=== PATIENT | male | born 1955 | race Caucasian/White ===

== ENCOUNTER 2023-10-23 22:45 | Inpatient (IN) | payer MEDICARE, SELFPAY ==
[2023-10-23 19:34] VITALS: BP 155/96
--- NOTE | 2023-10-23 19:59 | ED.GENMED ---
History of Present Illness
General
Chief Complaint: Change in Mental Status
Source: spouse
Exam Limitations: altered mental status
Time Seen by Provider: 10/23/23 19:48
Travel History
Have you had any contact with someone who has COVID-19?: Unable to Answer
Do you have any symptoms of coronavirus? Fever > 100 degrees, chills, cough, shortness of breath, sore throat, loss of taste or smell, muscle aches, or headache?: Unable to Answer
History of Present Illness
History of Present Illness:
This is a 68 year old male that comes in by ambulance with change in mental status. state that on he was fine. States that they watched basketball together. Then Wednesday he told her that he did not fell good and stayed in bed al day.
States that he said that he was tired. Today he told her this morning and that still did not fell well and she went about her daily activities. States that she didn't know if he came down to eat. State that she went up at dinner to see what he
wanted to eat and he was unable to talk. States that he was incoherent. States that there was urine everywhere. States that she noticed that he had not taken his Thyroid medication for 2 days so she gave him his medication and waited 30 min and
there was no change. Denies any fever, chest pain, SOB, abd pain, nausea, vomiting, diarrhea, headache.
Past History
Past History
ED Past Medical History: HTN, Hypothyroidism and Other (OA)
ED Past Surgical History: Orthopedic (Bilateral hip replacements. Left knee surgery, ) and Other (Hernia, Thyroidectomy)
Social History
Tobacco: Non-smoker
Alcohol: Daily
Personal:
Living: with family
Employment: Employed
Review of Systems
Review of Systems
Other source history: family
All Other Systems: ROS reviewed and negative except as documented in HPI and ROS
Constitutional: Reports fatigue; Denies fever or chills
EENT: Reports no symptoms
Respiratory: Denies cough or trouble breathing
Cardiac: Denies no symptoms or chest pain
ABD/GI: Reports no symptoms; Denies abdominal pain, nausea, vomiting or diarrhea
: Reports incontinence
Musculoskeletal: Reports no symptoms
Skin: Reports no symptoms
Neurological: Reports other (Change in mental status); Denies headache
Psychiatric: Reports no symptoms
Phy Exam
General Physical Exam
General Presentation: no apparent distress
General age: appears stated age
General Skin: warm and dry
General Habitus: elderly and poor hygiene
General Mental: confused (Patient able to give history and his PCP, Lethargic goes right back to sleep)
General Hydration: dry mucous membranes
ENT Exam
ENT Exam: TM's normal, pharynx normal and neck supple
Eye Exam
Eye Exam: EOMI
Cardiovascular Exam
Cardiovascular Exam: regular rate/rhythm, no edema and normal peripheral pulses
Pulmonary Exam
Pulmonary Exam: lungs clear, no respiratory distress, no rales, chest non tender, no crackles, no rhonchi, no wheezing and no cough
Gastrointestinal Exam
Gastrointestinal Exam: normal bowel sounds, non tender, soft, no organomegaly, no pulsatile mass and non distended
Musculoskeletal Exam
Musculoskeletal Exam: full ROM and no edema
Skin Exam
Skin Exam: normal color, warm/dry, no rash and no petechia
Psychiatric Exam
Psychiatric Exam: other (altered mental status)
Course
Orders/Labs/Results
Orders:
Orders
10/23/23 19:42
Alcohol Urgent
COVID-19 Antigen Urgent
Source: Nasal Swab
Complete Blood Count/With Diff Urgent
Comprehensive Metabolic Panel Urgent
TSH Reflex To Free T4 Urgent
Comment: ADD ON
Influenza A+B Rapid Molecular Urgent
RAMOS Source: Nasal Swab
Specimen Description:
10/23/23 19:57
CT Head W/o Iv Contrast Urgent
Comment:
Reason For Exam: CHANGE IN MENTAL STATUS
0.9% Sodium Chloride 1000 ml [Nss] 1,000 ml IV BOLUS
10/23/23 20:14
Add On- LAB Urgent
Tests Added?: TSH with reflex free T4
10/23/23 20:22
Electrocardiogram (*1) Urgent
Reason for Study: Other
Other Reason for Exam: change in mental status
EKG- Treatment ONCE
10/23/23 20:26
Blood Culture Q30M
RAMOS Source: Blood/Venous
Specimen Description:
10/23/23 20:39
Ammonia Urgent
Lactic Acid Urgent
10/23/23 20:40
Blood Culture Q30M
RAMOS Source: Blood/Venous
Specimen Description:
10/23/23 21:30
Straight cath- Treatment ONCE
10/23/23 21:32
CR Chest - 2 Views Urgent
Comment:
Reason For Exam: Cough
10/23/23 21:44
Urinalysis Reflex To Culture Urgent
Date Specimen was Collected: 10/23/23
Time Specimen was Collected: 21:31
Urine Drug Abuse Screen Urgent
Date Specimen was Collected: 10/23/23
Time Specimen was Collected: 21:31
Urine Microscopic Reflex Cult Urgent
10/23/23 22:31
Admit/Transfer Patient As Directed
Co-Sign Provider:
Level of Care: Inpatient admission
Assign to:: Telemetry
Physician / Group: Hospitalist
Diagnosis: Change of mental status
Reason for Telemetry: Arrhythmia
Date to Stop Telemetry: 10/26/23
Time to Stop Telemetry: 11:00
Reason for Hospitalization: Change of mental status
Expected length of stay greater than two midnights?: Yes
ELOS- Estimated Length of Stay in days: 3
I certify the patient meets the requirements for IP care: Yes
10/23/23 22:33
Code Status As Directed
Resuscitation Status: Full Code
10/26/23 11:00
DC Protocol for Telemetry ONCE
Abnormal Lab Results
10/23/23 10/23/23 10/23/23
19:42 20:39 21:44
RDW 16.6 H %
(11.5-14.5)
Abs Immat Gran (auto) 0.1 H 10^3/uL
(0-0.05)
Absolute Neuts (auto) 6.8 H 10^3/uL
(1.4-6.5)
Absolute Lymphs (auto) 0.8 L 10^3/uL
(1.2-3.4)
Immature Gran % 0.6 H %
(0-0.5)
Neutrophils % 82.3 H %
(42.2-75.2)
Lymphocytes % 9.2 L %
(20.5-51.1)
Potassium 3.4 L mmol/L
(3.5-5.1)
BUN 31 H mg/dl
(9-20)
Glucose 228 H mg/dl
(70-99)
AST 107 H U/L
(17-59)
ALT 126 H U/L
(0-50)
Ammonia < 9 L umol/L
(9-30)
Urine Ketones 3+ A
(Negative)
Ur Occult Blood Reflex 1+ A
(Negative)
Urine Bilirubin 1+ A
(Negative)
Urine Bacteria (Reflex) Few A
(Negative)
Urine Glucose Trace A
(Negative)
Urine Albumin (Reflex) 1+ A
(Neg - Trace)
10/23/23 19:42
10/23/23 19:42
Dehydration. Glucose nonfasting. AST/ALT eledvation. Ammonia <9 normal. Lactic acid normal at 1.5, TSH 0.74, Negative alcohol. COVID negative. Urine negative for infection. Urine drug negative.
Vital Signs
Initial and Last Documented VS:
Initial Vital Signs
Temp Pulse Resp BP Pulse Ox
97.8 F 128 34 155/96 89
10/23/23 19:34 10/23/23 19:34 10/23/23 19:34 10/23/23 19:34 10/23/23 19:34
Last Documented Vital Signs
Temp Pulse Resp BP Pulse Ox
97.8 F 114 24 112/64 93
10/23/23 19:34 10/23/23 22:45 10/23/23 22:45 10/23/23 22:00 10/23/23 22:45
MDM/Problems Addressed
Differential Diagnosis Includes:
CVA, Alcohol intoxication, Hypothyroid, COVID
MDM/Problems Addressed:
This is a 68 year old male that is brought in by ambulance with c/o altered mental status. states that he told her that he did not feel well on and was tired. Patient stayed in bed. Then on Wednesday he was still not feeling well and
stayed in bed. Today he was in bed and she went to check on him at Dinner time and he was incont and unable to speak
Will get labs, CT head, IV fluids, Urine, Urine drug
back into see patient and his . Reviewed all findings. Explained that his CT of the head was normal. Asked patient to try and urinate in the urinal and he said that he would be unable as he did not have to urinate. Will straight cath and get
chest x-ray. Explained to he will be admitted. Hospitalist notified.
Chronic conditions affecting care: Other (Hypothyroid)
Acute Exacerbation and/or Progression of Chronic Illness:
NA
*Radiology
Radiology exam reviewed: preliminary read by ED provider (Chest- Negative for active disease. ) and radiology read reviewed (CT head night hawk- No acute intracranial process. No intracranial bleed. No calvarial fracture. Unchange mild parenchymal
volume loss)
*Pulse Oximetry
Patient hypoxic: no
*EKG
Interpreted by ED Provider?: Yes
Heart Rate: 113
Rate: tachycardiac
Rhythm: sinus
[place]: normal axis
Interval: normal interval
QRS Pattern: right bundle branch block
Ischemia: no ischemia
*Operations Liaison Interpretation
Rate: tachycardiac
Heart Rate: 122
Rhythm: sinus tachycardia
*Critical Care Note
Total Time (30-74mins, 75-104mins- exclusive of procedures): Not Applicable
ED Attending Note
-
Portions of this chart may have been created with voice recognition software.� Occasional wrong word or��sound alike� substitutions may have occurred due to the inherent limitations of voice recognition software.
Discharge Plan
Departure
Patient Disposition: Admit
Date of Disposition: 10/23/23
Time of Disposition: 21:34
Admit to: Telemetry
Presentation/result/management discussed w/ accepting MD/DO: Hospitalist
Patient with high blood pressure during this ER visit?: No
Condition: Good
Covid-19: Negative COVID-19
Discharge Problem:
Acute alteration in mental status
Interventions
Interventions:
*Risk Screen - Suicide Last Done: 10/23/23 19:34
*General Assessment Last Done: 10/23/23 19:34
*Neglect/Abuse Screening Last Done: 10/23/23 19:34
ED- Fall Risk Assessment Last Done: 10/23/23 19:50
*ED COVID-19 Vaccine History Last Done: 10/23/23 19:34
ED- Pulmonary Assessment Last Done: 10/23/23 19:50
ED- Neurological Assessment Last Done: 10/23/23 19:50
ED- Cardiac Assessment Last Done: 10/23/23 19:50
--- NOTE | 2023-10-23 19:59 | EDRN ---
Pt incontinent of urine upon arrival - wet clothes removed and bagged. Diaper placed. Pt moves all extremities and repositions himself. Pt follows commands sometimes, has to be asked multiple times to follow commands. Pt drowsy, falls asleep
quickly when undisturbed.
[2023-10-23 20:00] VITALS: BP 122/68
[2023-10-23] MEDS: NSS 1000 IV (20:03)
[2023-10-23 20:10] LABS: % Basophils 0.2 % (0-2); % Immature Granulocytes 0.6 % (0-0.5); % Lymphocytes 9.2 % (20.5-51.1); % Monocytes 7.7 % (1.7-9.3); % Neutrophils 82.3 % (42.2-75.2); Absolute Immature Granulocytes 0.1 10^3/uL (0-0.05); Absolute Lymphocytes 0.8 10^3/uL (1.2-3.4); Absolute Monocytes 0.6 10^3/uL (0.1-0.6); Absolute Neutrophils 6.8 10^3/uL (1.4-6.5); Mean Corp Hgb Conc. 34.9 g/dL (33.0-37.0); Mean Corpuscular Hgb 29.8 pg (27.0-31.0); Mean Corpuscular Volume 85.5 fL (80.0-94.0); Mean Platelet Volume 10.2 fL (7.4-10.4); Nucleated Red Blood Cells % 0 % (-); Platelet Count 202 10^3/uL (130-400); Red Blood Cell Count 5.03 10^6/uL (4.70-6.10); Red Cell Dist. Width 16.6 % (11.5-14.5); White Blood Cell Count 8.3 10^3/uL (4.8-10.8)
[2023-10-23 20:20] LABS: COVID-19 Antigen Negative (Negative)
[2023-10-23 20:24] LABS: ALT (SGPT) 126 U/L (0-50); AST (SGOT) 107 U/L (17-59); Albumin 4.7 g/dl (3.5-5.0); Alkaline Phosphatase 88 U/L (38-126); Blood Urea Nitrogen 31 mg/dl (9-20); Calcium 9.7 mg/dl (8.4-10.2); Carbon Dioxide 28 mmol/L (22-30); Chloride 101 mmol/L (98-107); Glucose 228 mg/dl (70-99); Potassium 3.4 mmol/L (3.5-5.1); Sodium 141 mmol/L (135-145); Total Bilirubin 0.8 mg/dl (0.2-1.3); Total Protein 7.5 g/dl (6.3-8.2); eGFR > 60.00
[2023-10-23 20:25] LABS: Alcohol None Detected
[2023-10-23 20:47] VITALS: BP 107/62
[2023-10-23 21:02] LABS: TSH Reflex To Free T4 0.74 uIU/ml (0.47-4.68)
[2023-10-23 21:04] LABS: Ammonia < 9 umol/L (9-30); Lactic Acid 1.5 mmol/L (0.7-2.0)
[2023-10-23 21:55] LABS: Urine Albumin 1+ (Neg - Trace); Urine Bilirubin 1+ (Negative); Urine Character Clear (Clear); Urine Color Yellow; Urine Glucose Trace (Negative); Urine Ketone 3+ (Negative); Urine Leukocyte Negative (Negative); Urine Nitrite Negative (Negative); Urine Occult Blood 1+ (Negative); Urine Urobilinogen 1+ (Neg - 1+); Urine pH 6.5 (5.0-9.0)
[2023-10-23 22:00] VITALS: BP 112/64
[2023-10-23 22:04] LABS: Urine Bacteria Few (Negative); Urine Red Blood Cell 0-2 /HPF (0-2); Urine White Cell 0-2 /HPF (0-5)
--- NOTE | 2023-10-23 22:17 | HPS.HSE ---
Family Physician
-
Family Physician: Ck Iverson
Chief Complaint
-
Change of mental status
History of Present Illness
68 year old man that comes in with change in mental status. state that 2 days ago he was fine. Then yesterday he told her that he did not fell good and stayed in bed al day, and remained in bed today. Tonight at dinner time he was unable to
talk, and that he was incoherent. Also, that there was urine everywhere. He Denies any fever, chest pain, SOB, abd pain, nausea, vomiting, diarrhea, headache. At the time of my interview he complained of thirst, but was otherwise non-focal, though
still confused and not able to answer most questions.
Medical History
Past Medical History
Past Medical History: Reports Other
Additional Past Medical History:
essential HTN,
Hypothyroidism
OA
Bilateral hip replacements.
Left knee surgery
Hernia,
Thyroidectomy
Past Surgical History: Reports Other
Additional Past Surgical History:
See above
Social History
Tobacco: Non-smoker
Alcohol: Daily
Drug: None
Personal:
Living: With Family
Family History
Family History: Not pertinent
Allergies / Home Medications
Allergies reflects when Allergies were last updated in [employer].
Home Medications with original date entered in [employer]
Allergy/Medication List:
Allergies
Allergy/AdvReac Type Severity Reaction Status Date / Time
Cephalosporins Allergy Rash Verified 10/23/23 20:06
penicillin V Allergy Rash Verified 10/23/23 20:06
Penicillins Allergy Rash Verified 10/23/23 20:06
Home Medications
Go Lo 1 tab PO MEALS 10/23/23
Super Beta Prostate Advanced 1 tab PO DAILY 10/23/23
amlodipine 10 mg tablet 10 mg PO DAILY 10/23/23
levothyroxine 125 mcg tablet 125 mcg PO SUTH 10/23/23
levothyroxine 125 mcg tablet 250 mcg PO MOTUWEFRSA 10/23/23
losartan 100 mg-hydrochlorothiazide 25 mg tablet 1 tab PO DAILY 10/23/23
omeprazole 20 mg capsule,delayed release 20 mg PO DAILY 10/23/23
Review of Systems
-
Unable to obtain full review of systems at this time due to: Acuity
Physical Exam
Vital Signs
Vital Signs
Temp Pulse Resp BP Pulse Ox
97.8 F 110 32 107/62 96
10/23/23 19:34 10/23/23 20:47 10/23/23 20:47 10/23/23 20:47 10/23/23 20:47
Physical Exam
General: Well Developed, Well Nourished, No Apparent Distress and Comfortable
HEENT: Nose Appears Normal and Ears Appear Normal
Respiratory: Clear
Cardiac: S1/S2, Irregular Rhythm and Tachycardia
GI: Soft, Non Tender and Non Distended
Musculoskeletal: No Clubbing, No Cyanosis and No Edema
Skin: Warm and Dry; No Rash
Psych: Confused
Laboratory Results
-
10/23/23 19:42
10/23/23 19:42
Laboratory Results
Lactic Acid 1.5 mmol/L (0.7-2.0) 10/23/23 20:39
Total Bilirubin 0.8 mg/dl (0.2-1.3) 10/23/23 19:42
AST 107 U/L (17-59) H 10/23/23 19:42
ALT 126 U/L (0-50) H 10/23/23 19:42
Alkaline Phosphatase 88 U/L (38-126) 10/23/23 19:42
Data Reviewed
-
Lab Data: Labs Reviewed by me
Impression/Plan
-
IMPRESSION:
68 man with change of mental status
PLAN:
1. Change of mental status, could be dehydration leading to metabolic encephalopathy.
Awaiting results of
Chest xray
UDS
UA
Re-eval when results available
In meantime, supportive care and IV fluids
2. BUN/Creat 31/0.9, likely dehydration from decreased PO intake
IV fluids
Re-eval in am
3. Heart rate of 110 - likely from dehydration, but has new RBBB
IV fluids
Tele
SUZAN
4. AST/ALT of 107/126, daily drinker
Follow levels daily
5. Low K, 3.4, likely decreased po intake
Replete with PO
Recheck in am
Full code
VCD for DVTp
[2023-10-23 22:41] LABS: Amphetamines Negative (Negative); Barbiturates Negative (Negative); Benzodiazepines Negative (Negative); Buprenorphine Negative (Negative); Cocaine Negative (Negative); Marijuana Negative (Negative); Methadone Negative (Negative); Methamphetamines Negative (Negative); Opiates Negative (Negative); Phencyclidine Negative (Negative); Tricyclic Antidepressants Negative (Negative)
[2023-10-23 23:17] VITALS: BP 110/68
[2023-10-24 00:30] VITALS: BP 127/68; BMI 34.2
--- NOTE | 2023-10-24 01:02 | PTCARENOTE ---
Pt. admitted from E.D., awake, alert, forgetful to time, ST on monitor, vs stable, call au within reach, bed alarm intact.
[2023-10-24] MEDS: FLUSH (NSS) 1 FLUSH IV (01:16)
[2023-10-24] MEDS: NSS 1000 IV ×2 (01:16→06:32)
[2023-10-24 02:45] LABS: Troponin I < 0.012 ng/ml
[2023-10-24] MEDS: SYNTHROID 125 MCG PO (06:47)
[2023-10-24 08:47] LABS: Hematocrit 39.2 % (39.0-52.0); Hemoglobin 13.3 g/dL (13.0-18.0); Mean Corp Hgb Conc. 33.9 g/dL (33.0-37.0); Mean Corpuscular Hgb 29.8 pg (27.0-31.0); Mean Corpuscular Volume 87.9 fL (80.0-94.0); Platelet Count 161 10^3/uL (130-400); Red Blood Cell Count 4.46 10^6/uL (4.70-6.10); Red Cell Dist. Width 16.4 % (11.5-14.5); White Blood Cell Count 6.5 10^3/uL (4.8-10.8)
[2023-10-24] MEDS: KLOR-CON 20 MEQ PO (09:06)
[2023-10-24] MEDS: HYZAAR 100-25 TABLET 1 TAB PO (09:06)
[2023-10-24] MEDS: NORVASC 10 MG PO (09:06)
[2023-10-24] MEDS: PROTONIX 40 MG PO (09:06)
[2023-10-24 09:10] LABS: Troponin I 0.015 ng/ml
[2023-10-24 09:12] LABS: ALT (SGPT) 113 U/L (0-50); AST (SGOT) 95 U/L (17-59); Albumin 4.1 g/dl (3.5-5.0); Alkaline Phosphatase 74 U/L (38-126); Blood Urea Nitrogen 24 mg/dl (9-20); Calcium 9.3 mg/dl (8.4-10.2); Carbon Dioxide 31 mmol/L (22-30); Chloride 102 mmol/L (98-107); Estimated Creatinine Clearance 99 ml/min; Glucose 159 mg/dl (70-99); Potassium 2.9 mmol/L (3.5-5.1); Sodium 142 mmol/L (135-145); Total Bilirubin 0.8 mg/dl (0.2-1.3); Total Cholesterol 237 mg/dl (50-199); Total Protein 6.7 g/dl (6.3-8.2); Triglyceride 60 mg/dl (10-149); Very Low Density Lipoprotein 12 mg/dl (0-30); eGFR > 60.00
[2023-10-24 09:21] LABS: HDL Cholesterol 151 mg/dl; LDL Cholesterol, Calculated 74 mg/dl
--- NOTE | 2023-10-24 10:00 | W.PN.HOSP.TC ---
Addendum entered and electronically signed by Anne Sena MD 10/24/23 12:00:
reports patient drinks daily, with 4 days a week drinking 6 or more. Reports that patient also hides drinking.
MSAS protocol added
Original Note:
Today's Communication/Plan
-
see outlined plan
d/w
Assessment / Plan
Assessment / Plan
Assessment:
Change in mental status
- patient reports daily Vodka intake, and does not recall quantity ( cannot corroborate an amount)
- head CT negative; repeat CT this evening to eval for occult CVA. cannot have MRI due to metal in knee/shoulder
- TSH normal
- Ammonia level normal
- check B12/Folate
- UA clear. Follow Bcx
Acute hypoxic respiratory insufficiency
- CXR with atelectasis
- IS
Elevated LFTs
- might reflect fatty liver from ETOH use
- check Abd US
- check hep panel
- trend levels
Essential HTN
- continue CCB/Losartan
- hold HCTZ with low K+
Hypothyroidism
- continue LT4
- TSH is normal
GERD - PPI
Hypokalemia
- replete IV and oral this morning
- repeat level in AM
DVT ppx: SCDs
Code: Full
Anticipated Discharge: Within 24 hours
Subjective/Interval History
-
Date of Service: October 24, 2023
more alert this morning than described by , she reported 'semi-comatose state'
able to state name, location, month/year, president, his
Objective Data
-
Labs:
Laboratory Results
10/24/23
08:11
WBC 6.5
Hgb 13.3
Hct 39.2
Plt Count 161 D
Sodium 142
Potassium 2.9 L
Chloride 102
Carbon Dioxide 31 H
BUN 24 H
Creatinine 0.8
Glucose 159 H
Calcium 9.3
Total Bilirubin 0.8
AST 95 H
ALT 113 H
Alkaline Phosphatase 74
Vital Signs:
Vital Signs
Temp Pulse Resp BP Pulse Ox
98.4 F 117 18 127/68 98
10/24/23 00:30 10/24/23 00:30 10/24/23 00:30 10/24/23 00:30 10/24/23 00:30
I&O
10/23/23 10/24/23 10/25/23
06:59 06:59 06:59
Intake Total 1000 / 1000
Balance 1000 / 1000
Physical Exam
-
General: Well Developed, Well Nourished and Obese
HEENT: Normocephalic and Atraumatic
Respiratory: Clear to Auscultation; Negative Wheezes or Rales
Cardiac: Regular Rhythm and S1/S2
GI: Soft
Genito-urinary: No Costovertebral Tender
Musculoskeletal: No Edema
Neuro: AO x 3
Psych: Calm
Data Reviewed
-
Total Time Spent with Patient (in minutes): 45
Labs: Labs Reviewed by me
--- NOTE | 2023-10-24 10:33 | CM ---
Addendum entered by Jyoti Benitez 10/24/23 13:31:
manager of warehouse received a consult for substance abuse counseling and patient has declined the need for any information on treatment and support.
Original Note:
manager of warehouse reviewed patient's chart and met with patient and patient lives with his spouse in a 2 story home, patient is independent with adl's and uses a cane with ambulation, patient is currently on 3 liters of oxygen, case checker will follow
for any oxygen needs at discharge. Patient drives.
Pharmacy: [facility]
PCP: Dr. Iverson
Plan; Home when stable, need to watch for any home oxygen needs at discharge.
[2023-10-24 11:40] LABS: Glycohemoglobin (HgbA1c) 6.4 % (4.0-5.6)
[2023-10-24 11:43] VITALS: BP 100/56; BP 118/78; BP 135/74; PULSE 120; O2SAT 97
[2023-10-24] MEDS: KCL 270 MEQ IV (12:43)
[2023-10-24] MEDS: THIAMINE INJECTION 200 MG IV ×2 (13:48→20:51)
[2023-10-24] MEDS: VITAMIN B1 100 MG PO (13:48)
[2023-10-24 14:02] LABS: Folate 7.4 ng/ml (2.76-20)
--- NOTE | 2023-10-24 15:02 | PTOTSP ---
SPEECH THERAPY SWALLOW EVALUATION:
Patient presents with oropharyngeal swallow function grossly WFL at this time. Patient exhibiting no overt signs or symptoms of aspiration at this time. Patient remains at risk for aspiration given possiblity of acute CVA, repeat imaging pending.
WBC currently WNL. Recommend continue Regular texture diet, thin liquids. Meds whole in liquid. Aspiration precautions: upright positioning, small single sips/bites, slow rate of intake. Speech/language evaluation may be indicated pending repeat
imaging results. Speech therapy to follow x1 to check diet tolerance and provide education regarding aspiration risks and precautions.
RECOMMEND:
1) Regular texture diet, thin liquids
2) Meds whole in liquid
3) Aspiration precautions: upright positioning, small single sips/bites, slow rate of intake
4) Speech therapy to follow x1 to check diet tolerance and provide education regarding aspiration risks and precautions
[2023-10-24 15:07] LABS: Magnesium 1.7 mg/dl (1.6-2.3); Phosphorus 3.7 mg/dl (2.5-4.5)
[2023-10-24 15:37] VITALS: BP 159/99
[2023-10-24 19:00] VITALS: BP 134/75
[2023-10-24] MEDS: VITAMIN B1 PO (21:19)
[2023-10-25 00:24] VITALS: BP 142/82
[2023-10-25 03:08] VITALS: BP 126/78
[2023-10-25 05:22] VITALS: BMI 34.1
[2023-10-25] MEDS: SYNTHROID 250 MCG PO (05:52)
[2023-10-25 07:25] VITALS: BP 141/91
[2023-10-25 09:15] LABS: Hematocrit 39.6 % (39.0-52.0); Hemoglobin 13.6 g/dL (13.0-18.0); Mean Corp Hgb Conc. 34.3 g/dL (33.0-37.0); Mean Corpuscular Hgb 30.2 pg (27.0-31.0); Red Cell Dist. Width 15.6 % (11.5-14.5); White Blood Cell Count 5.4 10^3/uL (4.8-10.8)
[2023-10-25 09:36] LABS: ALT (SGPT) 157 U/L (0-50); AST (SGOT) 177 U/L (17-59); Albumin 4.1 g/dl (3.5-5.0); Alkaline Phosphatase 70 U/L (38-126); Blood Urea Nitrogen 16 mg/dl (9-20); Calcium 9.3 mg/dl (8.4-10.2); Carbon Dioxide 27 mmol/L (22-30); Chloride 103 mmol/L (98-107); Estimated Creatinine Clearance 99 ml/min; Glucose 147 mg/dl (70-99); Potassium 3.1 mmol/L (3.5-5.1); Sodium 138 mmol/L (135-145); Total Bilirubin 1.1 mg/dl (0.2-1.3); Total Protein 6.7 g/dl (6.3-8.2); eGFR > 60.00
[2023-10-25] MEDS: THIAMINE INJECTION 200 MG IV (09:48)
[2023-10-25] MEDS: COZAAR 100 MG PO (09:48)
[2023-10-25] MEDS: FOLVITE 1 MG PO (09:48)
[2023-10-25] MEDS: NORVASC 10 MG PO (09:48)
[2023-10-25] MEDS: PROTONIX 40 MG PO (09:48)
[2023-10-25 11:06] VITALS: BP 147/92; PULSE 115; O2SAT 95
[2023-10-25 11:21] VITALS: BP 129/78
[2023-10-25] MEDS: KCL 40 MEQ PO (11:22)
--- NOTE | 2023-10-25 11:41 | CM ---
Addendum entered by Mili Quintero 10/25/23 16:21:
Patient for discharge, agreeable to VN services. VM left to patients . TT sent to Donna for [facility] referral. IMM reviewed, signed, placed in chart. Patient reports will provide transportation home.
Plan; home with and [facility] pending acceptance.
Original Note:
Patient seen bedside with , Patti, discussed PT recommendation of Acute Rehab. Patient declining at this time, reports he feels comfortable discharging home. Per OT notes from today, recommending home with spouse upon discharge. CM offered VN
services, patient declining at this time. CM will continue to follow for discharge planning needs.
Plan; home with , declining services at this time, will continue to offer.
[2023-10-25 14:00] LABS: Blood Urea Nitrogen 18 mg/dl (9-20); Calcium 9.4 mg/dl (8.4-10.2); Carbon Dioxide 26 mmol/L (22-30); Chloride 103 mmol/L (98-107); Estimated Creatinine Clearance 114 ml/min; Glucose 147 mg/dl (70-99); Potassium 3.4 mmol/L (3.5-5.1); Sodium 136 mmol/L (135-145); eGFR > 60.00
--- NOTE | 2023-10-25 15:42 | W.PN.HOSP.TC ---
Today's Communication/Plan
-
dc to home
Assessment / Plan
Assessment / Plan
Assessment:
Change in mental status
- patient reports daily Vodka intake, and does not recall quantity (as per 4x per week, up to 6 Vodkas when drinks)
- head CT negative; repeat CT neg
- TSH normal
- Ammonia level normal
- check B12 not done, 03/26/22 was 598/Folate 7.4
- UA clear. Follow Bcx - NGTD
discussed with , she states his mental status is at baseline
Acute hypoxic respiratory insufficiency
- CXR with atelectasis
- IS
Elevated LFTs
- might reflect fatty liver from ETOH use
- Abd US: No evidence of cholelithiasis, gallbladder wall thickening or biliary tract dilatation.
Mild hepatomegaly with findings again seen compatible with diffuse steatosis.
- check hep panel
- trend levels
Essential HTN
- continue CCB/Losartan
- hold HCTZ with low K+
Hypothyroidism
- continue LT4
- TSH is normal
GERD - PPI
Hypokalemia
- repleted IV and oral this morning
- K now 3.4, will give 1 more dose now, prior to dc
DVT ppx: SCDs
Code: Full
More than 30 minutes spent in discharge including 2 visits
Final examination of the patient
Summarizing hospital stay
Instructions for continuing care to all relevant caregivers
Preparation of discharge records, prescriptions, and referral forms
Total time spent (in minutes): 55
Anticipated Discharge: Today
Subjective/Interval History
-
Date of Service: October 25, 2023
Awake, alert, conversant. believes mental status is at baseline
Objective Data
-
Labs:
Laboratory Results
10/25/23 10/25/23
08:22 13:33
WBC 5.4
Hgb 13.6
Hct 39.6
Plt Count
Sodium 138 136
Potassium 3.1 L 3.4 L
Chloride 103 103
Carbon Dioxide 27 26
BUN 16 18
Creatinine 0.8 0.7
Glucose 147 H 147 H
Calcium 9.3 9.4
Total Bilirubin 1.1
AST 177 H
ALT 157 H
Alkaline Phosphatase 70
Vital Signs:
Vital Signs
Temp Pulse Resp BP Pulse Ox
98.8 F 119 18 129/78 97
10/25/23 11:21 10/25/23 11:21 10/25/23 11:21 10/25/23 11:21 10/25/23 11:21
I&O
10/24/23 10/25/23 10/26/23
06:59 06:59 06:59
Intake Total 1000 / 1000 720 / 720
Output Total 650 / 650
Balance 1000 / 1000 70 / 70
Review of Systems
-
History Source: Patient, Family (reviewed with ) and Coordinated Provider (reviewed with Erica LEWIS)
Constitutional: Reports No Symptoms and Other (no withdrawal symptoms); Denies Fever
EENT: Reports No Symptoms Reported
Respiratory: Reports No Symptoms
Cardiac: Reports No Symptoms
Musculoskeletal: Reports Muscle Weakness (chronically uses a rolling walker and has one at home)
Physical Exam
-
General: Well Developed, Well Nourished and No Apparent Distress
HEENT: Normocephalic, Atraumatic and Moist Mucous Membranes
Respiratory: Clear to Auscultation; Negative Wheezes, Rales or Rhonchi
Cardiac: Regular Rhythm and S1/S2
GI: Soft, Nontender and Nondistended
Musculoskeletal: No Clubbing, No Cyanosis, No Edema and Other (pt walked by me, able to ambulate with a rolling walker)
Neuro: Awake, Alert and Oriented
--- NOTE | 2023-10-25 16:10 | W.DS.TRANS ---
DC Summary - Stock Receiver
-
Discharge Instructions:
Discharge Diagnosis/Procedures Change in Mental Status, hypokalemia
Diet No added salt
Activity With Walker
Driving Restrictions Not until seen by your Dr
Bathing Restrictions None
Blood Work CCBC, BMP in 1 week
Other Services VN,PT
Instructions:
Stand-Alone Forms:
Changes to Home Medications: Yes
Discharge Medications:
DC Medications w/original date entered in [facility]
Go Lo 1 tab PO MEALS 10/23/23
Super Beta Prostate Advanced 1 tab PO DAILY 10/23/23
amlodipine 10 mg tablet 10 mg PO DAILY 10/23/23
levothyroxine 125 mcg tablet 125 mcg PO SUTH 10/23/23
levothyroxine 125 mcg tablet 250 mcg PO MOTUWEFRSA 10/23/23
omeprazole 20 mg capsule,delayed release 20 mg PO DAILY 10/23/23
losartan 100 mg tablet 100 mg PO DAILY #30 tabs 10/25/23
Home Medication Changes
stop Losartan/HCTZ and substitute Losartan
Pending Results: No
--- NOTE | 2023-10-25 16:18 | VNURNOTE ---
Home Health Liaison spoke with patient at 1615 by phone to discuss [facility] nurse/therapy, visits, schedule and homebound status. Patient is agreeable and understands that visits at home will be 2-3 x per week to assess and teach medical management.
Patient is aware that [facility] will contact them for start of care in 1-2 days after discharge from .
[facility] referral completed in [facility].
[2023-10-25] MEDS: KCL 20 MEQ PO (16:59)
[2023-10-26 07:00] LABS: Hepatitis B Surface Antigen Negative (Negative)
[2023-10-26 07:17] LABS: Hepatitis C Antibody Negative (Negative)
[2023-10-26 18:41] LABS: Hepatitis B Surface Antibody Indeterminate
[2023-10-26 18:48] LABS: Hepatitis A Antibody, Total Negative (Negative)
== END 2023-10-25 19:10 | disposition home health service (06) | DRG 641 ==
LOC: 4 WEST ACU 22:45
PROVIDERS: Clinical Nurse Specialist Family Health; Internal Medicine; ADMITTING PHYSICIAN Internal Medicine; ATTENDING PHYSICIAN Internal Medicine; EMERGENCY PHYSICIAN Emergency Medicine; FAMILY PHYSICIAN Internal Medicine
DX: E87.6 Hypokalemia (principal); J98.11 Atelectasis; R41.82 Altered mental status, unspecified; E89.0 Postprocedural hypothyroidism; I10 Essential (primary) hypertension; M19.90 Unspecified osteoarthritis, unspecified site; E86.0 Dehydration; I45.10 Unspecified right bundle-branch block; R09.02 Hypoxemia; R06.89 Other abnormalities of breathing; F10.90 Alcohol use, unspecified, uncomplicated; R79.89 Other specified abnormal findings of blood chemistry; K70.0 Alcoholic fatty liver; K21.9 Gastro-esophageal reflux disease without esophagitis; R26.2 Difficulty in walking, not elsewhere classified; Z96.643 Presence of artificial hip joint, bilateral; Z11.52 Encounter for screening for COVID-19; Z88.1 Allergy status to other antibiotic agents; Z88.0 Allergy status to penicillin; Z79.890 Hormone replacement therapy
CPT/HCPCS: 51701; 70450; 71046; 76700; 80048; 80053; 80061; 80306; 81003; 81015; 82077; 82140; 82746; 83036; 83605; 83735; 84100; 84443; 84484; 85025; 85027; 86706; 86708; 86803; 87040; 87340; 87502; 87811; 92610; 93005; 96360; 97163; 97166; 97530; 99285

== ENCOUNTER → 2023-11-12 07:26 | Outpatient (REF) | payer MEDICARE, SELFPAY ==
[2023-11-12 09:04] LABS: % Basophils 1.1 % (0-2); % Eosinophils 3.7 % (0-6); % Lymphocytes 30.5 % (20.5-51.1); % Monocytes 9.5 % (1.7-9.3); % Neutrophils 55.2 % (42.2-75.2); Absolute Basophils 0.1 10^3/uL (0-0.2); Absolute Eosinophils 0.2 10^3/uL (0-0.7); Absolute Lymphocytes 1.6 10^3/uL (1.2-3.4); Absolute Monocytes 0.5 10^3/uL (0.1-0.6); Hematocrit 39.5 % (39.0-52.0); Mean Corp Hgb Conc. 32.9 g/dL (33.0-37.0); Mean Corpuscular Hgb 30.1 pg (27.0-31.0); Mean Corpuscular Volume 91.4 fL (80.0-94.0); Mean Platelet Volume 11.1 fL (7.4-10.4); Nucleated Red Blood Cells % 0 % (-); Platelet Count 213 10^3/uL (130-400); Red Blood Cell Count 4.32 10^6/uL (4.70-6.10); Red Cell Dist. Width 14.1 % (11.5-14.5); White Blood Cell Count 5.4 10^3/uL (4.8-10.8)
[2023-11-12 09:29] LABS: Blood Urea Nitrogen 14 mg/dl (9-20); Calcium 9.3 mg/dl (8.4-10.2); Carbon Dioxide 24 mmol/L (22-30); Chloride 102 mmol/L (98-107); Glucose 133 mg/dl (70-99); Potassium 3.8 mmol/L (3.5-5.1); Sodium 139 mmol/L (135-145); eGFR > 60.00
[2023-11-12 09:30] LABS: Glycohemoglobin (HgbA1c) 6.2 % (4.0-5.6)
[2023-11-12 10:02] LABS: PSA, Total - Screen 3.75 ng/ml (0.0-4.0)
[2023-11-12 10:21] LABS: Vitamin B12 634 pg/ml (239-931)
== END ==
LOC: REG 07:26
PROVIDERS: ATTENDING PHYSICIAN Internal Medicine; FAMILY PHYSICIAN Internal Medicine
DX: E87.6 Hypokalemia (principal); E53.8 Deficiency of other specified B group vitamins; I10 Essential (primary) hypertension; C61 Malignant neoplasm of prostate; E11.29 Type 2 diabetes mellitus with other diabetic kidney complication; E03.9 Hypothyroidism, unspecified
CPT/HCPCS: 36415; 80048; 82607; 83036; 84439; 84443; 85025; G0103